=== PATIENT | male | born 1995 | race Caucasian/White ===

== ENCOUNTER 2022-04-10 14:48 | Emergency (ER) | payer MEDICAID ==
[~2022-04-10] VITALS: Ht 172.7 cm; Wt 59.0 kg
[2022-04-10] MEDS ORDERED: ONDANSETRON HCL 4MG/2ML INJ IV STA (18:34)
[2022-04-10] MEDS ORDERED: KETOROLAC 30MG/ML VIAL IV STA (18:34)
[2022-04-10] MEDS ORDERED: SODIUM CHLORIDE 0.9% 1,000 ML IV ONE (18:45)
[2022-04-10 19:03] LABS: BASOPHILS % 0.2 % (0.0-2.0); EOSINOPHILS % 0.2 % (0.0-5.0); HEMATOCRIT. 47.1 % (42.0-52.0); HEMOGLOBIN. 16.5 g/dL (14.0-18.0); LYMPHOCYTES % 11.4 % (20.0-50.0); MEAN CORPUSCULAR VOLUME 85.6 fL (80.0-94.0); MEAN PLATELET VOLUME 9.1 fl (7.4-10.4); MONOCYTES % 7.5 % (2.0-8.0); NEUTROPHILS % 80.7 % (40.0-76.0); PLATELET 230 x1000/uL (130-400); RED CELL DISTRIBUTION WIDTH 12.3 % (11.6-14.6)
[2022-04-10 19:09] LABS: INR 1.2; PROTHROMBIN TIME 13.2 sec (9.6-11.0)
[2022-04-10 19:11] LABS: CHLORIDE 107 mEq/L (98-107)
[2022-04-10 19:18] LABS: ETHANOL BLOOD < 10 mg/dL
[2022-04-10 19:41] VITALS: BP 104/73
[2022-04-10] MEDS ORDERED: ONDA4TAB50 MT (20:02)
[2022-04-10] MEDS ORDERED: IBUP-2029 MT (20:02)
== END 2022-04-10 21:00 | disposition home or self-care (01) ==
LOC: ER 14:48
DX: R10.11 Right upper quadrant pain (principal); R11.2 Nausea with vomiting, unspecified
CPT/HCPCS: 36415; 76700; 80053; 80320; 83690; 85025; 85610; 96361; 96374; 96375; 99284; J1885; J2405; J7030; G0480